=== PATIENT | male | born 1990 | race Caucasian/White ===

== ENCOUNTER 2020-07-19 11:12 | Emergency (ER) | payer OTHER, SELFPAY ==
[2020-07-19 11:17] VITALS: BP 158/77; PULSE 94; RESP 16; O2SAT 100
[2020-07-19 12:34] VITALS: BP 128/70; PULSE 82; RESP 18; TEMP 37.1; O2SAT 99; BMI 30.5
--- NOTE | 2020-07-19 12:43 | ECG_ITS ---
Test Reason : ARRYTHMIA Blood Pressure : / mmHG Vent. Rate : 066 BPM Atrial Rate : 066 BPM P-R Int : 180 ms QRS Dur : 084 ms QT Int : 372 ms P-R-T Axes : 052 036 029 degrees QTc Int : 389 ms Normal sinus rhythm Normal ECG No previous ECGs available Referred By: Gerarod Gonzáles Electronically Signed By:DAWN GRIGSBY MD
--- NOTE | 2020-07-19 12:43 | XR_ITS ---
EXAMINATION: XR CHEST CLINICAL INFORMATION: Shortness of breath COMPARISON: October 30, 2016. TECHNIQUE: AP portable view of the chest was obtained. FINDINGS: No significant abnormality is noted involving the heart, lungs, mediastinum, bony thorax or soft tissues. IMPRESSION: No acute disease.
--- NOTE | 2020-07-19 12:44 | ED_ITS ---
HPI - Arrhythmia/Palpitations General Chief Complaint: Arrhythmia/Palpitations Stated Complaint: RAPID HEART BEAT, SOB Time Seen by Provider: 07/19/20 12:43 History of Present Illness HPI narrative: 30 years old male presented to the emergency department with a chief complaint of palpitation and shortness of breath. He states that the symptom lasted 20 minutes is feeling better now is back to his baseline. He has no medical problems he does not take any medicine he does not use any drugs complaint: rapid heart beat and heart racing Onset (ago): hour(s) (1) Duration: now resolved Severity: moderate Context: occurred during rest Associated symptoms: denies other symptoms Related Data Allergies Allergy/AdvReac Type Severity Reaction Status Date / Time No Known Allergies Allergy Verified 07/19/20 12:40 [No Known Allergies*] Review of Systems Review of Systems: Yes all other systems are reviewed and are negative Cardiovascular: Cardiovascular: Reports as per HPI and Reports no additional cardiovascular complaints Respiratory: Respiratory: Reports no additional respiratory complaints Musculoskeletal: Musculoskeletal: Reports no additional musculoskeletal complaints [facility] Past Medical History Medical History No known health problems Social History Social History Smoking Status: Never smoker Use of substances other than those prescribed or required for medical reasons: No Advance Directives: No Advance Directives Information Provided: Yes Physical Exam Vital Signs: Vital Signs: Vital Signs Temp Pulse Resp BP Pulse Ox 07/19/20 14:50 74 18 107/54 L 100 07/19/20 13:05 98.7 F 68 16 121/61 99 07/19/20 12:34 98.7 F 82 18 128/70 99 07/19/20 11:17 94 16 158/77 H 100 Body Mass Index 30.5 Const: General: cooperative and healthy appearing Orientation/consciousness: oriented to person, oriented to place, oriented to time and patient oriented x3 HENMT: Head: Yes normal to inspection Eyes: General: appearance normal, both eyes and all related structures Visual Deshpande: normal visual deshpande by confrontation Alignment and Position: alignment normal Neck: Neck: Yes normal visual inspection and Yes full ROM Chest: Chest palpation & inspection: normal inspection of the chest and normal palpation of entire chest wall Resp: Effort & Inspection: normal respiratory effort Cardio: Jugular venous distension: no JVD Rate: regular rate GI: Inspection: Yes normal to inspection Skin: General skin exam: no rashes or lesions noted Lesions: no lesions Rashes: no rashes Neuro: General: oriented to person, oriented to place, oriented to time and patient oriented x3 Extrem: General: Yes normal to inspection and Yes full ROM Psych: Appearance: grossly normal MDM - Arrhythmia/Palpitations Lab Data Result diagrams: 07/19/20 13:00 07/19/20 13:00 Labs: Lab Results 07/19/20 07/19/20 07/19/20 Range/Units 13:00 13:00 13:00 WBC 7.9 (4.8-10.8) X10*3/uL RBC 5.50 (4.60-5.80) X10*6/uL Hgb 16.5 (14.0-18.0) g/dl Hct 46.6 (42-52) % MCV 84.7 (80-98) fL MCH 30.0 (27.0-33.0) pg MCHC 35.4 (31.0-36.0) g/dl RDW 12.8 (11.0-16.0) % Plt Count 327 (160-400) X10*3/uL MPV 9.9 (9.4-12.4) fL Immature Gran % (Auto) 0.4 (0.0-0.4) % Neut % (Auto) 74.5 H (45-73) % Lymph % (Auto) 14.5 L (20-40) % Jackson % (Auto) 7.8 (2-11) % Eos % (Auto) 1.8 (0-4) % Baso % (Auto) 1.0 (0-2) % Lymph # (Auto) 1.2 (1.2-4.9) X10*3/uL Jackson # (Auto) 0.6 (0.1-1.2) X10*3/uL Eos # (Auto) 0.1 (0.0-0.4) X10*3/uL Baso # (Auto) 0.1 (0.0-0.2) X10*3/uL Abs Immat Gran (auto) 0.03 (0.00-0.03) X10*3/uL Absolute Neuts (auto) 5.9 (2.0-8.3) X10*3/uL Absolute Nucleated RBC 0.000 (0.0-0.012) X10*3/uL Nucleated RBC % (auto) 0.0 (0.0-0.2) /100WBC Sodium 138 (135-145) mmol/L Potassium 4.4 (3.3-5.1) mmol/l Chloride 103 (96-108) mmol/L Carbon Dioxide 28 (22-29) mmol/L Anion Gap 11 L (12-20) BUN 24 H (9-16) mg/dL Creatinine 1.09 (0.5-1.4) mg/dL Estim Creat Clear Calc 105.1 Estimated GFR > 60 Random Glucose 97 (60-115) mg/dL Calcium 9.6 (8.4-10.2) mg/dL Total Bilirubin 0.8 (0.0-1.0) mg/dL AST 42 H (5-37) U/L ALT 66 H (0-40) U/L Alkaline Phosphatase 56 (39-117) U/L Troponin I High Sens < 3.5 (<3.5-35.0) ng/L Total Protein 7.3 (6.5-8.0) g/dL Albumin 4.8 (3.5-5.0) g/dL ECG Data Attestation: I personally reviewed and interpreted this ECG as follows: Pacemaker model: normal sinus rhythm rate is [address]-T changes Discharge Plan Discharge Clinical Impression: Palpitations Patient Disposition: Home, Self-Care Instructions: Heart Palpitations (ED) Additional Instructions: 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
[2020-07-19 13:05] VITALS: BP 121/61; PULSE 68; RESP 16; TEMP 37.1; O2SAT 99
[2020-07-19 13:08] LABS: MANUAL DIFF FLAG NO
[2020-07-19 13:12] LABS: Basophils Absolute Auto 0.1 X10*3/uL (0.0-0.2); Eosinophils Absolute Auto 0.1 X10*3/uL (0.0-0.4); Eosinophils Percent Auto 1.8 % (0-4); Hematocrit 46.6 % (42-52); Hemoglobin 16.5 g/dl (14.0-18.0); Imm Gran Abs Auto 0.03 X10*3/uL (0.00-0.03); Imm Gran Pct Auto 0.4 % (0.0-0.4); Lymphocytes Absolute Auto 1.2 X10*3/uL (1.2-4.9); Lymphocytes Percent Auto 14.5 % (20-40); Mean Corpuscular HGB Conc 35.4 g/dl (31.0-36.0); Mean Corpuscular Volume 84.7 fL (80-98); Mean Platelet Volume 9.9 fL (9.4-12.4); Monocytes Absolute Auto 0.6 X10*3/uL (0.1-1.2); Monocytes Percent Auto 7.8 % (2-11); Neutrophils Absolute Auto 5.9 X10*3/uL (2.0-8.3); Neutrophils Percent Auto 74.5 % (45-73); Platelet Count 327 X10*3/uL (160-400); Red Cell Distribution Width 12.8 % (11.0-16.0); White Blood Count 7.9 X10*3/uL (4.8-10.8)
[2020-07-19 13:45] LABS: Alanine Aminotransferase 66 U/L (0-40); Albumin Level 4.8 g/dL (3.5-5.0); Alkaline Phosphatase 56 U/L (39-117); Anion Gap 11 (12-20); Aspartate Amino Transferase 42 U/L (5-37); Bilirubin Total 0.8 mg/dL (0.0-1.0); Blood Urea Nitrogen 24 mg/dL (9-16); Calcium 9.6 mg/dL (8.4-10.2); Carbon Dioxide 28 mmol/L (22-29); Chloride 103 mmol/L (96-108); Creatinine Clr Calc Pharmacy 105.1; Estimated Glomerular Filt Rate > 60; Glucose Random 97 mg/dL (60-115); Potassium 4.4 mmol/l (3.3-5.1); Sodium 138 mmol/L (135-145); Total Protein 7.3 g/dL (6.5-8.0)
[2020-07-19 13:49] LABS: Troponin-I High Sensitivity < 3.5 ng/L (<3.5-35.0)
[2020-07-19 14:50] VITALS: BP 107/54; PULSE 74; RESP 18; O2SAT 100
== END 2020-07-19 15:57 | disposition home or self-care (01) ==
PROVIDERS: Emergency Provider Emergency Medicine
DX: R00.2 Palpitations (principal)
CPT/HCPCS: 36415; 71045; 80053; 84484; 85025; 93005; 99285

== ENCOUNTER → 2020-07-24 10:30 | Outpatient (BNVA) | payer OTHER, SELFPAY | PROVIDERS: Visit Provider Physician Assistant Medical | DX: F41.1 Generalized anxiety disorder (principal) | CPT/HCPCS: 99213 ==

== ENCOUNTER → 2020-07-31 09:28 | Outpatient (BNVA) | payer OTHER, SELFPAY | PROVIDERS: Visit Provider Internal Medicine | DX: F41.1 Generalized anxiety disorder (principal) | CPT/HCPCS: 99213 ==

== ENCOUNTER → 2020-08-12 14:57 | Outpatient (BNVA) | payer OTHER, SELFPAY | PROVIDERS: Visit Provider Internal Medicine Cardiovascular Disease | DX: Z76.89 Persons encountering health services in other specified circumstances (principal) ==

== ENCOUNTER → 2020-09-10 14:43 | Outpatient (REF) | payer OTHER, SELFPAY ==
--- NOTE | 2020-09-10 14:47 | CA_ITS ---
Transthoracic Echocardiogram Patient (Last, First, Middle): James Youngblood, Gender: Male Date of : 1990 Age: 30 Procedure Date: 09/10/2020 Procedure Type: Transthoracic Echocardiogram Location: OP Height: 170.18 cm Weight: 88.45 kg BSA: 2.00 m2 Heart Rate: bpm BP: 124 / 68 mmHg Ironworker: Referring MD: Denver Brewster MD Symptoms: R00.2 - Palpitations Study Quality: Good ECG Rhythm: Sinus Conclusions: - The left ventricular systolic function is normal. The visually estimated ejection fraction is between 60-65%. - By color and spectral doppler, there is [id number] interatrial shunting. Could be atrial septal defect. - The left atrium is moderately dilated. Findings Left Ventricle Normal left ventricular cavity size. There is normal left ventricular wall thickness. The left ventricular systolic function is normal. The visually estimated ejection fraction is between 60-65%. There is no evidence of regional wall motion abnormalities. Diastolic function is normal for age. Right Ventricle Normal right ventricular cavity size and systolic function. Atria The left atrium is moderately dilated. The right atrium is mildly dilated. By color and spectral doppler, there is [id number] interatrial shunting. Could be atrial septal defect. Aortic Valve There is a normal trileaflet aortic valve. There is no aortic valve stenosis. There is no aortic valve regurgitation. Mitral Valve The mitral valve appears normal. There is trace mitral valve regurgitation. There is no mitral valve stenosis. Pulmonic Valve The pulmonic valve was not well visualized. Tricuspid Valve Normal tricuspid valve structure. There is trace tricuspid valve regurgitation. The pulmonary artery systolic pressure is normal. Great Vessels The aortic annulus, sinuses of valsalva, and asc aorta are normal in size. Venous The inferior vena cava is normal in size and collapses greater than 50% with inspiration. Pericardium/Pleural There is no evidence of pericardial effusion. Prior Study Comparison No prior study available for comparison. Recommendations, Care & Conclusions Recommend a JAVIER. Measurements 2D Linear Measurements IVSd: 1.07 0.6-0.9/0.6-1.0 cm LVIDd: 5.03 3.9-5.3/4.2-5.9 cm LVIDd Index: 2.52 2.4-3.2/2.2-3.1 cm/m2 LVIDs: 3.29 2.0-3.6 cm LVPWd: 1.01 0.7-1.1 cm Ao Root: 3.20 2.1-3.5 cm LA Diam: 3.80 2.7-3.8/3.0-4.0 cm LAIDs Index: 1.90 1.5-2.3 cm/m2 LV Mass: 241.45 67-162/88-224 g LV Mass Index: 120.72 43-95/49-115 g/m2 LVOT Diam: 2.40 3.0+(-)1.3 cm Mitral Valve MV Pk E: 0.73 MV PK A: 0.60 MV Decel Time: 144.00 E/A: 1.20 E'Lateral: 16.00 E'Medial: 11.40 E/E' Med: 6.40 E/E' Lat: 4.60 PHT: 42.00 MVA PHT: 5.24 Decel [place]: 5.07 Aortic Valve AoV Pk [place]: 1.31 AoV Mn [place]: 0.86 AoV VTI: 0.26 AoV Pk Grad: 7.00 Aov Mn Grad: 4.00 BALDO Cont.VTI: 3.25 LVOT LVOT Pk [place]: 0.98 LVOT Mn [place]: 0.66 LVOT VTI: 0.19 LVOT Pk Grad: 4.00 LVOT Mn Grad: 2.00 LVOT Diam: 2.40 LVOT Area: 4.52 Diastolic Function MV Pk E: 0.73 MV Pk A: 0.60 E/A: 1.20 E'Medial: 11.40 E/E' Med: 6.40 E' Laterial: 16.00 E/E' Lat: 4.60 Tricuspid Valve TR Pk [place]: 1.92 TR Pk Grad: 15.00 RA Press: 3.00 RVSP: 18.00 Great Vessels Aorta Ao Root-2D: 3.20 2.0-3.7 cm Pulmonary Valve PV Pk [place]: 1.16 Peak PV Grad: 5.00 Updated in Other Vendor System with Status of Final Reinier Kenny MD electronically signed on 09/11/2020 11:28:21 AM with status of Final
== END ==
LOC: HO.CARD 14:43
PROVIDERS: Visit Provider Internal Medicine Cardiovascular Disease
DX: R00.2 Palpitations (principal)
CPT/HCPCS: 93306

== ENCOUNTER → 2020-09-23 07:38 | Outpatient (REF) | payer OTHER, SELFPAY ==
--- NOTE | 2020-09-23 07:43 | CA_ITS ---
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 Updated in Other Vendor System with Status of Final Manuel Deshpande MD electronically signed on 09/25/2020 9:05:51 AM with status of Final
== END ==
LOC: HO.CARD 07:38
PROVIDERS: Visit Provider Internal Medicine Cardiovascular Disease
DX: Q24.8 Other specified congenital malformations of heart (principal)
CPT/HCPCS: 93308

== ENCOUNTER 2021-05-23 20:03 | Emergency (ER) | payer OTHER, SELFPAY ==
[2021-05-23 20:11] VITALS: BP 130/82; PULSE 86; O2SAT 99
[2021-05-23 20:17] VITALS: BP 131/70; PULSE 75; RESP 18; TEMP 37.1; O2SAT 97; BMI 31.4
--- NOTE | 2021-05-23 20:29 | ED_ITS ---
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 Related Information Previous Rx's Medication Instructions Recorded buspirone 5 mg tablet 5 mg PO TID #90 tab 07/25/20 Allergies Allergy/AdvReac Type Severity Reaction Status Date / Time No Known Allergies Allergy Verified 07/19/20 12:40 [No Known Allergies*] Review of Systems Review of Systems: All other systems are reviewed and are negative Constitutional: Reports as per HPI and Reports no additional constitutional complaints Eyes: Reports as per HPI and Reports no additional eye complaints Reports system reviewed and no additional complaints, except as documented Cardiovascular: Reports as per HPI and Reports no additional cardiovascular complaints Respiratory: Reports as per HPI and Reports no additional respiratory complaints Gastrointestinal: Reports as per HPI and Reports no additional gastrointestinal complaints Genitourinary: Reports no additional female genitourinary complaints Musculoskeletal: Reports no additional musculoskeletal complaints Skin/Breast: Reports system reviewed and no additional complaints, except as docu Psychiatric: Reports no additional psychiatric complaints Endocrine: Reports no additional endocrine complaints Hematologic/Lymphatic: Reports no additional hematologic/lymphatic complaints Allergic/Immunologic: Reports no additional allergic/immunologic complaints Reports system reviewed and no additional complaints, except as documented and Reports Abnormal speech present PMFSH Past Medical History Medical History No known health problems Family History Family History Maternal Grandmother Diabetes Maternal Grandfather Diabetes Physical Exam Vital Signs: Vital Signs: Last Vital Signs Temp 98.8 F 05/23/21 20:17 Pulse 75 05/23/21 20:17 Resp 18 05/23/21 20:17 BP 131/70 05/23/21 20:17 Pulse Ox 97 05/23/21 20:17 Body Mass Index 31.4 Vital signs have been reviewed as appeared to be correct. Blood pressure normal. Heart rate normal. Respiration rate normal. Temperature normal. Oxygen saturation normal. Appearance: Alert. Oriented X3. No acute distress. Head: Normal external exam. Normocephalic. Atraumatic. No Rodriguez signs noted. No raccoon eyes noted Eyes: PERRLA. EOMI. Conjunctiva and sclera normal. Eyelids normal. ENT: TM's Normal. Pharynx normal. Uvula midline. Moist mucous membranes. No trismus noted. No drooling noted. No muffled voice noted. Neck: Normal inspection. Neck supple. FROM. No adenopathy. Thyroid Normal. No meningeal signs. No neck mass noted. CVS: Normal heart rate and rhythm. Heart sound normal. No murmurs noted. Pulses normal throughout. Respiratory: No respiratory distress. Painless inspiration. Breath sounds normal. No wheezes/rales/rhonchi noted. Chest nontender. No accessory muscle usage noted or decreased air movement noted. Abdomen: Soft and nontender. Bowel sounds normal in all 4 quadrants. No distention noted. No organomegaly noted. No visible injury noted. Back: No CVA tenderness. Full range of motion noted. Skin: Skin warm and dry. Normal skin color. Normal skin turgor. No rashes/lesions/lacerations noted. Extremities: No lower extremity edema. Extremities exhibit normal range of motion. Extremities nontender. Neuro: Oriented X 3. Cranial nerve exam: II-XII are grossly intact No motor deficit. No sensory deficit. Reflexes normal. Course Course Course Narrative: Assessment and plan. 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 Patient medically clear is okay for patient to go back to work tonight. Discharge Plan Discharge Clinical Impression: Encounter for medical screening examination Patient Disposition: Home, Self-Care Instructions: Normal Exam (ED) Additional Instructions: Follow-up with PCP in 2 days. Prescriptions: No Action buspirone 5 mg tablet 5 mg PO TID Qty: 90 RF: 0
== END 2021-05-23 20:55 | disposition home or self-care (01) ==
LOC: HO.ED 20:40
PROVIDERS: Emergency Provider Emergency Medicine
DX: Z04.2 Encounter for examination and observation following work accident (principal); R20.0 Anesthesia of skin
CPT/HCPCS: 99283

== ENCOUNTER 2021-06-24 12:14 | Outpatient (REF) | payer OTHER, SELFPAY ==
--- NOTE | ~2021-06-24 | XR_ITS ---
EXAMINATION: XR FOOT, RIGHT CLINICAL INFORMATION: Right foot pain great toe COMPARISON: None TECHNIQUE: AP, lateral, and oblique views of the right foot. FINDINGS: There is a small avulsion fracture of the phalangeal tuft great toe with minimal displacement. No additional fracture seen. There is mild soft tissue swelling. The joint spaces are maintained normal. The ankle mortise and subtalar joints are normal. XR/XR foot RT min 3V IMPRESSION: Small avulsion fracture phalangeal tuft first digit.
== END 2021-06-24 12:15 | disposition home or self-care (01) ==
LOC: HO.HMGCX 12:14
PROVIDERS: PCP Family Medicine; Visit Provider Internal Medicine
DX: Z13.89 Encounter for screening for other disorder (principal)
CPT/HCPCS: 73630

== ENCOUNTER 2022-01-02 20:35 | Emergency (ER) | payer OTHER, SELFPAY ==
[2022-01-02 23:20] VITALS: BP 122/74; PULSE 93; RESP 16; TEMP 37; O2SAT 100; BMI 32.3
--- NOTE | 2022-01-02 23:48 | ED.SKABFB ---
HPI - Skin/Abscess/Foreign Bdy General Chief complaint: Skin/Abscess/Foreign Body Stated complaint: ?Arm infection Time Seen by Provider: 01/02/22 23:48 Source: patient and RN notes reviewed Mode of arrival: ambulatory Limitations: no limitations History of Present Illness HPI narrative: 31-year-old male is here today for complaining of right forearm wrist area redness and swelling. Patient reports that he was trimming his hair with a tremor and couple days later he started having redness possibly due to ingrown hair. Patient reports that he did have that happen to him in the past. States that he took Bactrim and it went away. Today patient is reporting also that he has increased redness in the same area as well as a red streak going up his arm. Patient denies any fever or chills. Denies any pain over his wrist area. No drainage. MD complaint: other (Ingrown hair to right forearm) Related Data Home Medications Medication Instructions Recorded Confirmed escitalopram oxalate 10 mg tablet 10 mg PO DAILY 06/24/21 Previous Rx's Medication Instructions Recorded buspirone 5 mg tablet 5 mg PO TID #90 tab 07/25/20 cephalexin 500 mg capsule 500 mg PO QID 10 Days #40 cap 01/03/22 loratadine 10 mg tablet (Claritin) 10 mg PO DAILY PRN #10 tab 01/03/22 sulfamethoxazole 800 1 tab PO BID 10 Days #20 tab 01/03/22 mg-trimethoprim 160 mg tablet (Bactrim DS) Allergies Allergy/AdvReac Type Severity Reaction Status Date / Time No Known Allergies Allergy Verified 07/19/20 12:40 [No Known Allergies*] Review of Systems Review of Systems: Constitutional : No Weight loss, No Fever, No Chills, No Night Sweats, No Fatigue, No Malaise ENT/Mouth : No Hearing loss, No Ear Pain, No Nasal Congestion, No Sinus Pain, No Hoarseness, No sore throat, No Rhinorrhea, No Swallowing Difficulty Eyes: No Eye Pain, No Swelling, No Redness, No Foreign Body, No Discharge, No Vision Changes Cardiovascular : No Chest Pain, No SOB, No Dyspnea on Exertion, No Orthopnea, No Edema, No Palpitations Respiratory : No Cough, No Sputum, No Wheezing, No Smoke Exposure, No Dyspnea Gastrointestinal : No Nausea, No Vomiting, No Diarrhea, No Constipation, No abdominal Pain, No Hematochezia, No Melena Genitourinary : no irregular bleeding, No Dysuria, No Urinary Frequency, No Hematuria, No Urinary Incontinence, No Urgency, No Flank Pain, No Urinary Flow Changes, No Hesitancy Musculoskeletal : No joint pain, No Myalgias, No Joint Swelling Skin : No Skin Lesions, No rash, right forearm redness from ingrown hair Neuro : No Weakness, No Numbness, No Paresthesias, No Loss of Consciousness, No Dizziness, No Headache Psych : No Anxiety/Panic, No Depression, No SI/HI/AH/VH, No Social Issues, Yes all other systems are reviewed and are negative [facility] Past Medical History Medical History No known health problems Family History Family History Maternal Grandmother Diabetes Maternal Grandfather Diabetes Social History Social History Advance Directives: No Physical Exam Vital Signs: Vital Signs: Last Vital Signs Temp 98.6 F 01/02/22 23:20 Pulse 93 01/02/22 23:20 Resp 16 01/02/22 23:20 BP 122/74 01/02/22 23:20 Pulse Ox 100 01/02/22 23:20 BMI result Body Mass Index 32.3 Const: General: cooperative, healthy appearing, comfortable, no acute distress, well developed, alert and awake Nutritional Appearance: average body habitus Orientation/consciousness: patient oriented x3 Limitations: no limitations Neck: Neck: Yes normal visual inspection, Yes full ROM and Yes trachea midline Skin: Other: Right forearm redness, induration without drainage General skin exam: elasticity normal, turgor normal and erythema Neuro: General: patient oriented x3 Course Course Course Narrative: 31-year-old male is here today for complaining of right forearm wrist area redness and swelling. Patient reports that he was trimming his hair with a tremor and couple days later he started having redness possibly due to ingrown hair. Patient reports that he did have that happen to him in the past. States that he took Bactrim and it went away. Today patient is reporting also that he has increased redness in the same area as well as a red streak going up his arm. Patient denies any fever or chills. Denies any pain over his wrist area. No drainage. Area indurated no drainage. I will put patient on Bactrim and Keflex. First dose will be given in ER. Ten day dose. Discussed with patient the importance of finishing all of his antibiotics. Also warm compresses to the area keeping his arm up. Patient was also instructed to return to emergency department if the redness will increase or if he will start having any drainage so we can help him drain the abscess. Discharge Plan Discharge Clinical Impression: Ingrowing hair, Abscess Patient Disposition: Home, Self-Care Instructions: Abscess (ED) Additional Instructions: You were seen here today for ingrown hair and skin infection. Please monitor this area carefully for increased swelling, redness or drainage. You may apply warm compress, make sure you will elevate your arm. Please take all your antibiotics as prescribed. Make sure that you finish all of the antibiotics. Please follow-up with your primary care provider on as needed basis. You may return to emergency department if your symptoms will get worse or if you experience any additional concerning symptoms. Prescriptions: New sulfamethoxazole-trimethoprim [Bactrim DS] 800-160 mg tablet 1 tab PO BID 10 Days Qty: 20 0RF cephalexin 500 mg capsule 500 mg PO QID 10 Days Qty: 40 0RF loratadine [Claritin] 10 mg tablet 10 mg PO DAILY PRN (Reason: allergy symptoms) Qty: 10 0RF No Action buspirone 5 mg tablet 5 mg PO TID Qty: 90 0RF escitalopram oxalate 10 mg tablet 10 mg PO DAILY 0RF Interventions: ED Discharge Assessment Last Done: 01/03/22 01:03 Discharge Date/Time: 01/03/22 01:06
[2022-01-03] MEDS: Sulfamethox/Trimeth 800/160 TABLET 1 TAB PO (00:35)
[2022-01-03] MEDS: cephALEXin 500 MG CAPSULE PO (00:35)
== END 2022-01-03 01:06 | disposition home or self-care (01) ==
PROVIDERS: Emergency Provider Emergency Medicine Emergency Medical Services
DX: L73.1 Pseudofolliculitis barbae (principal); L02.413 Cutaneous abscess of right upper limb
CPT/HCPCS: 99283